=== PATIENT | female | born 1970 | race Caucasian/White ===

== ENCOUNTER → 2016-08-10 | Outpatient (CLI) | payer BC ==
--- NOTE | 2016-08-16 20:31 | SLEEP ---
DATE OF STUDY: 08/10/2016 ATTENDING PHYSICIAN: Jeramie Alcantara PA-C The patient is 45 years old who weighs 215 pounds with a BMI of 35. The patient's Candler score was 13. Home sleep study was performed by [facility]. The total recording time was 461 minutes. During the night study, the patient had no central apneas or mixed apneas, but there were 46 obstructive apneas and 47 hypopneas. The patient's apnea hypopnea index was 12 per hour with a supine index 57 per hour. Review of nocturnal oximetry study revealed an average oxygen saturation 91% with the lowest of 79%. 128 minutes were spent in oxygen saturation of less than 90%. Mean heart rate was 58 beats per minute. IMPRESSION: 1. Mild sleep apnea-hypopnea syndrome with worsening during supine sleep. 2. Nocturnal hypoxia secondary to obstructive sleep apnea. RECOMMENDATIONS: 1. The patient would benefit from in-lab CPAP titration study. 2. Alternate treatment options include use of an oral appliance as recommended by the dentist. 3. Avoid supine sleep. 4. Caution regarding driving until symptoms of sleep apnea resolve with the above recommendation. 5. Avoid ECONOMIST RESEARCH ASSISTANT depressants. ANNA MARIE ARZATE MD DR: ODALIS/bassem JOB#: [id number] / [id number] EDGARD
== END | disposition home or self-care (01) ==
LOC: RT 07:53
PROVIDERS: ATTEND Physician Assistant Medical
DX: Q79.6 Ehlers-Danlos syndromes (principal); R53.83 Other fatigue; G47.33 Obstructive sleep apnea (adult) (pediatric)
CPT/HCPCS: G0399

== ENCOUNTER → 2016-09-26 | Outpatient (CLI) | payer BC ==
--- NOTE | 2016-09-27 20:10 | SLEEP ---
DATE OF STUDY: 09/26/2016 ATTENDING PHYSICIAN: Alber Alcantara PA-C The patient is 45 years old who weighs 222 pounds with a BMI of 37. The patient's Nome score was 11. The patient had a history of mild sleep apnea with worsening during supine sleep based on a home sleep study. The patient returned to sleep lab for CPAP titration. During the night study, the patient spent 451 minutes in bed and slept for 244 minutes with a sleep efficiency of 54%. Sleep latency was 100 minutes, which is prolonged with a REM latency of 191 minutes. Overall, sleep architecture showed increased stage 1 sleep, normal stage 2 sleep, normal slow wave and reduced REM sleep. The patient was started on CPAP at 5 cm of water and the pressure was increased to eliminate apneas, hypopneas as well as snoring. At the final pressure of 17 cm of water, the patient slept for 36 minutes. The patient had supine as well as REM sleep. AHI was reduced to 2 per hour and oxygen saturation remained above 90%. The patient used a small-sized full face mask. EKG monitoring revealed normal sinus rhythm. No sustained arrhythmias were observed. Average heart rate was 58 beats per minute. PLMs were seen at index of 1 per hour and none caused EEG arousals. IMPRESSION: 1. Sleep apnea diagnosed by previous sleep study. 2. No clinically significant periodic limb movements of sleep. RECOMMENDATIONS: 1. CPAP at 17 cm of water completely eliminated the patient's sleep apnea, should be used on a nightly basis. 2. The patient used a small-sized full face mask. 3. Follow up in 4-6 weeks to assess compliance with CPAP and to document clinical improvement. 4. Weight loss is strongly advised. 5. Avoid TRANSPORTATION CONSULTANT depressants. 6. Caution regarding driving until symptoms of sleep apnea resolve with the use of CPAP. ANNA MARIE ARZATE MD DR: ODALIS/bassem JOB#: [id number] / [id number] ALBER Fallon PA-C
== END | disposition home or self-care (01) ==
LOC: RT 18:31
PROVIDERS: ATTEND Physician Assistant Medical
DX: G47.30 Sleep apnea, unspecified (principal)
CPT/HCPCS: 95811

== ENCOUNTER → 2016-10-24 | Outpatient (CLI) | payer BC ==
--- NOTE | 2016-10-24 16:44 | RAD ---
APPROVED REPORT Patient Location : OUT-PATIENT Indications Varicose Veins Deep System Deep Venous Reflux present : No Findings The right great saphenous vein measures 0.81 cm and does not reflux. The left great saphenous vein me asures 0.6 cm and does not reflux. The bilateral lesser saphenous veins do not demonstrate any eviden ce of reflux. Spectral waveforms and color Doppler do not demonstrate any evidence of thrombus. Critical Notification Critical Value: No <Conclusion> No evidence of significant reflux in the bilateral lesser and greater saphenous veins.
== END | disposition home or self-care (01) ==
LOC: US 13:26
PROVIDERS: ATTEND Internal Medicine Cardiovascular Disease
DX: I83.93 Asymptomatic varicose veins of bilateral lower extremities (principal)
CPT/HCPCS: 93970

== ENCOUNTER → 2016-11-03 | Outpatient (CLI) | payer BC ==
[~2016-11-03] MED LIST: REGADENOSON 0.4 MG/5 ML DISP.SYRIN. IV ONE
--- NOTE | 2016-11-03 16:03 | RAD ---
APPROVED REPORT Test Type: Pharmacological Stress Nurse/Tech: Anum Woodard R.N. Test Indications: precordial pain Medical History: Hep c Resting ECG: SB Resting Heart Rate: 45 bpm Resting Blood Pressure: 115/66mmHg Pretest Chest Pain: No chest pain Nurse/Tech Notes lungs cta, heart tones regular, good radial pulse Consent: The procedure was explained to the patient in lay terms. Informed consent was witnessed. Abdias eout was entered into [employer]. History and Stress Test performed by Anum Woodard R.N. Pharm. Details Pharmacologic stress testing was performed using 0.4mg per 5ml of regadenoson given intravenously ove r 7-10 seconds. Stress Symptoms No chest pain or symptoms.Pt c\o jaw tightness, pain resolved during recovery POST EXERCISE Reason for Termination: Infusion complete Target HR: No Max HR: 111 bpm Max Blood Pressure: 116/59mmHg Chest Pain: No. Arrhythmia: Yes. initailly T waves flipped in V leads, resolved during recovery ST Change: No. INTERPRETATION Stress EKG Conclusion: No significant ischemic changes noted. Imaging Protocol IMAGE PROTOCOL: Rest Tc-99m/stress Tc-99m 1 day Rest: Stress: Viability: Radiopharm.Tc99m [id number] Sestamibi [id number] 30mCi Duration 15min. 10min. Img Date 11/03/2016 11/03/2016 Inj-Img Zpvn84riu. 120min. Rest Admin Site:IV - Right HandAdministrator:RT Mayte (R)(N) Stress Admin Site: IV - Right HandAdministrator: RT Mayte (R)(N) STRESS DATA End Diast. Vol.111.0mlAv. Heart Rate59.0bpm End Syst. Vol.35.0mlCO Index BSA0.0L/min Myocardial Mhwi067.0gEject. Uxvsndab13.0% Stress Rates Pk. Fill Rate2.24EDV/secLVtime Pk. Fill 138.71msec Pk. Empty Rate3.39ESV/secLVtime Pk. Bqsnk250.95msec 06/27 Pk. Fill1.43EDV/sec Stress Scores Regional WT0.00Summed WT0.00 Regional WM0.00Summed WM0.00 The rest and stress images show normal perfusion, normal contraction and thickening. LV Perf. Quant 17 Seg. SSS1.00 17 Seg. SRS0.00 17 Seg. SDS1.00 Stress Defect Extent (% LAD)0.00Rest Defect Extent (% LAD)0.00Rev. Defect Extent (% LAD)0.00 Stress Defect Extent (% LCX) 0.00Rest Defect Extent (% LCX)0.00Rev. Defect Extent (% LCX)0.00 Stress Defect Extent (% RCA)0.00Rest Defect Extent (% RCA)0.00Rev. Defect Extent (% RCA)0.00 Stress Defect Extent (% GUNNAR)0.00Rest Defect Extent (% GUNNAR)0.00Rev. Defect Extent (% GUNNAR)0.00 Other Information Quality:Average Risk Assessment: Low Risk Conclusion 1. No evidence of stress induced EKG changes. 2. Normal perfusion at stress/rest. 3. low risk study, EF > 65%.
== END | disposition home or self-care (01) ==
LOC: NM 06:52
PROVIDERS: ATTEND Internal Medicine Cardiovascular Disease
DX: R07.2 Precordial pain (principal)
CPT/HCPCS: 78452; 93017; 96374; 96375; 96376; A9500; J2785

== ENCOUNTER → 2016-11-16 | Outpatient (CLI) | payer BC ==
--- NOTE | 2016-11-23 15:01 | EKG ---
[facility] [address] [place] [address] Test Date: 2016-11-16 Test Time: 12:58:45 Pat Name: TIANA COY Department: Room: Gender: [employer] Watcher: Jaspal Caro : 1970 Requested By: CAITLIN FELIX Order Number: [id number] Reading MD: Christopher Solorzano Interpretive Statements No evidence of abnormalities noted on holter monitoring. No symptoms reported. Electronically Signed On 11-24-2016 13:37:13 CDT by Christopher Solorzano
== END | disposition home or self-care (01) ==
LOC: EKG 09:37
PROVIDERS: ATTEND Internal Medicine Cardiovascular Disease
DX: R00.1 Bradycardia, unspecified (principal)
CPT/HCPCS: 93225